=== PATIENT | female | born 1940 | race Caucasian/White ===

== ENCOUNTER 2016-06-25 12:40 | Emergency (ER) | payer OTHER, BC ==
[~2016-06-25] VITALS: Ht 149.9 cm; Wt 68.1 kg
[~2016-06-25 12:40] MED LIST: ADVIL200 M1 PO; ALPRAZOLAM0.25 MG PO; ASPIR 8181 M1 PO; ASPIR 8181 MG PO; ATROVENT H200 INHALA IH; CALTRATE 600 +1 EAC1 PO; CALTRATE600 MG PO; CARDIZEM CD,CA120 MG PO; CIPRO500 MG PO; COZAAR100 MG PO; CYANOCOBALAM1000 MCG PO; FLAGYL500 MG PO; FUROSEMIDE40 MG PO; HYOSCYAMINE0.375 M1 PO; LEVBID0.375 MG PO; METAMUCIL1 EACH PO; METOPROLOL SUC100 MG PO; NEXIUM40 MG PO; NITROGLYCERIN0.4 MG PO; NITROGLYCERIN0.4 MG SL; NORVASC5 M1 PO; NORVASC5 MG PO; PLAVIX75 MG PO; PRADAXA150 MG PO; PRAVACHOL20 MG PO; PREDNISONE10 MG PO; Pradaxa PO; SYMBICORT60 INHALA1 IH; SYMBICORT60 INHALAT IH; TESSALON200 MG PR; TUDORZA PRESS400 MCG IH; TYLENOL EXTRA500 MG PO; WYGESIC,DARV1 TABLET PO; XANAX0.25 MG PO; XOPENEX; ZETIA10 MG PO
[2016-06-25 13:36] LABS: HEMATOCRIT 46.4 % (36.0-46.0); MCH 28.9 PG (29.0-34.0); MCHC 33.8 G/DL (30.0-36.0); MCV 85.3 FL (83-99); MEAN PLAT.VOLUME 8.9 uM^3 (9.5-12.4); PLATELET COUNT 322 K/uL (156-360); RBC DIS.WIDTH-CV 13.6 % (11.8-14.6); RBC DIS.WIDTH-SD 42.4 % (39-53); RED BLOOD COUNT 5.44 M/uL (3.80-5.20); WHITE BLOOD COUNT 8.4 K/uL (4.1-10.2)
[2016-06-25 13:48] LABS: CHLORIDE 97 mEq/L (99-109); POTASSIUM 3.5 mEq/L (3.7-5.4); SODIUM 136 mEq/L (136-147)
[2016-06-25 13:49] LABS: GLUCOSE 135 mg/dL (70-99)
[2016-06-25 13:50] LABS: ANION GAP 14 MEQ/L (2-14)
[2016-06-25 13:53] LABS: GFR ESTIMATE (CALCULATED) 52 mL/min/
[2016-06-25 13:54] LABS: UREA NITROGEN (BUN) 17 mg/dL (9-23)
[2016-06-25 13:59] LABS: TROP-I INTERPRETATION NEGATIVE; TROPONIN-I < 0.01 ng/mL (0.0-0.30)
[2016-06-25] MEDS ORDERED: ZYRTEC10 M3 PO (17:50)
[2016-06-25] MEDS ORDERED: ATROVENT H200 INHALA IH (17:50)
[2016-06-25] MEDS ORDERED: TESSALON PERLE100 MG PO (17:50)
[2016-06-25 18:12] VITALS: BP 119/67
== END 2016-06-25 18:13 | disposition home or self-care (01) ==
LOC: EME 12:40
DX: J06.9 Acute upper respiratory infection, unspecified (principal); J20.9 Acute bronchitis, unspecified; J44.9 Chronic obstructive pulmonary disease, unspecified; K21.9 Gastro-esophageal reflux disease without esophagitis; E78.5 Hyperlipidemia, unspecified; I10 Essential (primary) hypertension; I25.2 Old myocardial infarction; Z96.653 Presence of artificial knee joint, bilateral; Z79.82 Long term (current) use of aspirin; Z87.891 Personal history of nicotine dependence
CPT/HCPCS: 71020; 80048; 83880; 84484; 85027; 93005; 94640; 99281; 99284

== ENCOUNTER → 2017-11-02 | Outpatient (CLI) | payer OTHER, BC ==
[~2017-11-02] MED LIST changes: +COZAAR50 MG PO; +TESSALON PERLE100 MG PO; +ZYRTEC10 M3 PO
== END | disposition home or self-care (01) ==
LOC: OPR 08:27 → EDSTATUS 09:00 → OPR 09:00
PROC: 0BBJ3ZX Excision of Left Lower Lung Lobe, Percutaneous Approach, Diagnostic (ICD-10-PCS; principal; 2017-11-02)
PROC: BB241ZZ Computerized Tomography (CT Scan) of Bilateral Lungs using Low Osmolar Contrast (ICD-10-PCS; principal; 2017-11-02)
DX: R91.1 Solitary pulmonary nodule (principal); Z85.118 Personal history of other malignant neoplasm of bronchus and lung; I10 Essential (primary) hypertension; E78.5 Hyperlipidemia, unspecified; J44.9 Chronic obstructive pulmonary disease, unspecified; I25.10 Atherosclerotic heart disease of native coronary artery without angina pectoris; I48.91 Unspecified atrial fibrillation; Z95.1 Presence of aortocoronary bypass graft; Z87.891 Personal history of nicotine dependence
CPT/HCPCS: 71045; 77012; 88305; 88341 TC; 88342 TC; J2405; J2765; J3010

== ENCOUNTER → 2017-11-24 | Outpatient (CLI) | payer OTHER, BC | END | disposition home or self-care (01) | LOC: RAD 10:28 → NUC 10:28 | DX: C34.90 Malignant neoplasm of unspecified part of unspecified bronchus or lung (principal); Z90.2 Acquired absence of lung [part of] | CPT/HCPCS: 71046; 78598; A9540; A9567 ==

== ENCOUNTER 2017-12-08 11:41 | Day surgery (SDC) | payer OTHER, BC ==
[~2017-12-08] VITALS: Ht 149.9 cm; Wt 61.3 kg
[2017-12-08 12:11] LABS: BASOPHIL (%) 1.3 % (0-1); BASOPHIL COUNT 0.2 K/uL (0-0.1); EOSINOPHIL (%) 2.9 % (0-5); EOSINOPHIL COUNT 0.4 K/uL (0-0.3); HEMOGLOBIN 14.5 G/DL (11.9-15.5); IMMATURE GRANULOCYTE (%) 0.2 % (0.0-0.7); LYMPHOCYTE COUNT 1.9 K/uL (1.0-2.8); MCHC 33.7 G/DL (30.0-36.0); MONOCYTE (%) 7.3 % (3-12); MONOCYTE COUNT 0.9 K/uL (0-0.8); NEUTROPHIL (%) 73.3 % (45-76); NEUTROPHIL COUNT 9.3 K/uL (1.8-6.4); PLATELET COUNT 402 K/uL (156-360); RBC DIS.WIDTH-CV 13.6 % (11.8-14.6); RBC DIS.WIDTH-SD 41.1 % (39-53); RED BLOOD COUNT 5.18 M/uL (3.80-5.20); WHITE BLOOD COUNT 12.7 K/uL (4.1-10.2)
[2017-12-08 12:14] VITALS: BP 134/72
[2017-12-08 12:20] LABS: PTT 29.5 SEC (25-37)
[2017-12-08 12:21] LABS: CHLORIDE 105 mEq/L (99-109); SODIUM 141 mEq/L (136-147)
[2017-12-08 12:22] LABS: GLUCOSE 105 mg/dL (70-99)
[2017-12-08 12:26] LABS: GFR ESTIMATE (CALCULATED) 57 mL/min/
[2017-12-08 12:27] LABS: UREA NITROGEN (BUN) 13 mg/dL (9-23)
[2017-12-08] MEDS ORDERED: MOTRIN400 MG PO (15:09)
[2017-12-08 16:04] VITALS: BP 115/58
[2017-12-08 16:57] VITALS: BP 104/56
== END 2017-12-08 17:03 | disposition home or self-care (01) ==
LOC: SDC 11:41 → 2SOUTH 12-15 10:20 → EDSTATUS 12-15 11:37
PROVIDERS: Thoracic Surgery (Cardiothoracic Vascular Surgery)
PROC: 07B74ZX Excision of Thorax Lymphatic, Percutaneous Endoscopic Approach, Diagnostic (ICD-10-PCS; principal; 2017-12-08)
DX: C34.32 Malignant neoplasm of lower lobe, left bronchus or lung (principal); Z85.118 Personal history of other malignant neoplasm of bronchus and lung; I10 Essential (primary) hypertension; J44.9 Chronic obstructive pulmonary disease, unspecified; K21.9 Gastro-esophageal reflux disease without esophagitis; I25.2 Old myocardial infarction; Z95.5 Presence of coronary angioplasty implant and graft; Z79.01 Long term (current) use of anticoagulants; Z88.0 Allergy status to penicillin; Z80.0 Family history of malignant neoplasm of digestive organs; Z80.3 Family history of malignant neoplasm of breast; Z87.891 Personal history of nicotine dependence; Z79.82 Long term (current) use of aspirin; Z88.8 Allergy status to other drugs, medicaments and biological substances
CPT/HCPCS: 80048; 85025; 85610; 85730; 86850; 86900; 86901; 88305; J0690; J1100; J1170; J1885; J2405; J2710; J2765; J3010; J7643; Q0175

== ENCOUNTER 2018-01-18 07:30 | Emergency (ER) | payer OTHER, BC ==
[~2018-01-18] VITALS: Ht 149.9 cm; Wt 68.3 kg
[~2018-01-18 07:30] MED LIST changes: +DOCUSATE SODIU100 MG PO; +HYDROCODON-ACE1 EAC7 PO; +MOTRIN400 MG PO
[2018-01-18 08:44] LABS: HEMOGLOBIN 11.2 G/DL (11.9-15.5); MCHC 32.9 G/DL (30.0-36.0); PLATELET COUNT 462 K/uL (156-360); RBC DIS.WIDTH-CV 14.8 % (11.8-14.6); RBC DIS.WIDTH-SD 45.8 % (39-53)
[2018-01-18 08:50] LABS: APPEARANCE SL.HAZY ((CLEAR)); BILIRUBIN NEGATIVE; BLOOD SMALL; COLOR YELLOW ((YELLOW)); GLUCOSE (STRIP) NEGATIVE; KETONES NEGATIVE; LEUKOCYTES MODERATE; NITRITE NEGATIVE; PROTEIN (STRIP) NEGATIVE; UROBILINOGEN 0.2 MG/DL (0.2-1.0)
[2018-01-18 09:01] LABS: BACTERIA RARE /HPF; EPITHELIAL CELLS 3+ /HPF; MUCUS TRACE /LPF; UCUL ADDED? YES
[2018-01-18 09:20] LABS: CHLORIDE 103 MEQ/L (99-109); SODIUM 139 MEQ/L (136-147); TOTAL BILIRUBIN 0.4 MG/DL (0.0-1.0)
[2018-01-18 09:26] LABS: ALKALINE PHOSPHATASE 70 IU/L (3-129); ALT (GPT) 5 IU/L (3-49); AST (GOT) 8 IU/L (2-34); CREATININE 0.6 MG/DL (0.6-1.3); GFR ESTIMATE (CALCULATED) > 59 mL/min/; GLUCOSE 107 mg/dL (70-99); TOTAL PROTEIN 5.4 G/DL (6.4-8.3); UREA NITROGEN (BUN) 10 mg/dL (9-23)
[2018-01-18] MEDS ORDERED: BACTRIM,SEPT1 TABLET PO (12:04)
[2018-01-18 15:00] VITALS: BP 150/90
== END 2018-01-18 15:02 ==
LOC: EME 07:30
PROVIDERS: Nurse Practitioner Family
DX: L03.313 Cellulitis of chest wall (principal); T81.4XXA Infection following a procedure, initial encounter; D64.9 Anemia, unspecified; Z85.118 Personal history of other malignant neoplasm of bronchus and lung; E78.5 Hyperlipidemia, unspecified; I11.0 Hypertensive heart disease with heart failure; I50.9 Heart failure, unspecified; I25.2 Old myocardial infarction; J43.9 Emphysema, unspecified; K21.9 Gastro-esophageal reflux disease without esophagitis; Z95.5 Presence of coronary angioplasty implant and graft; Z87.891 Personal history of nicotine dependence; Z88.0 Allergy status to penicillin; Z88.8 Allergy status to other drugs, medicaments and biological substances; Z79.82 Long term (current) use of aspirin
CPT/HCPCS: 71046; 80053; 81003; 85027; 87040; 87086; 93005; 94640; 99281; 99285; S0039